=== PATIENT | female | born 1985 | race Caucasian/White ===

== ENCOUNTER 2022-03-01 20:53 | Emergency (ER) | payer BC, OTHER ==
[2022-03-01] MEDS ORDERED: Clindamycin HCl 150 MG Cap PO ONE (20:54)
[2022-03-01] MEDS ORDERED: Lidocaine 1% 5 ML VIAL INJECT ONE (21:06)
[2022-03-01] MEDS ORDERED: Bupivacaine 0.5% 30 ML SDV INFILT ONE (21:06)
[2022-03-01] MEDS ORDERED: Clindamycin HCl 150 MG Cap PO SCH (21:15)
[2022-03-01 21:24] VITALS: BP 144/98; PULSE 97
[2022-03-01] MEDS ORDERED: Clindamycin HCl 150 MG Cap ONE (21:25)
== END 2022-03-01 21:52 | disposition home or self-care (01) ==
LOC: DL.ED 20:53
DX: K04.7 Periapical abscess without sinus (principal); K02.62 Dental caries on smooth surface penetrating into dentin; Z88.2 Allergy status to sulfonamides; Z79.899 Other long term (current) drug therapy
CPT/HCPCS: 64400; 99282; A9270; J3490